=== PATIENT | female | born 1960 | race Caucasian/White ===

== ENCOUNTER 2019-11-03 17:06 | Emergency (ER) | payer MEDICAID, SELFPAY ==
[2019-11-03 17:08] VITALS: BP 116/73; PULSE 88; RESP 15; TEMP 36.4; O2SAT 100; BMI 19.8
--- NOTE | 2019-11-03 17:20 | EKG12_ITS ---
Test Reason : CP Blood Pressure : / mmHG Vent. Rate : 076 BPM Atrial Rate : 076 BPM P-R Int : 126 ms QRS Dur : 072 ms QT Int : 400 ms P-R-T Axes : 052 045 062 degrees QTc Int : 450 ms Normal sinus rhythm Normal ECG Confirmed by CADY HILARIO, DOROTHEA ([id number]), acquisitions editor HELLEN VAZQUEZ ([id number]) on 11/06/2019 12:55:14 PM Referred By: NATALYA/CLARENCE Confirmed By:SHAHNAZ LAZAR MD
--- NOTE | 2019-11-03 17:22 | RAD_ITS ---
STUDY: X-RAY CHEST REASON FOR EXAM: Female, 59 years old. CHEST PAINS AND SOB TECHNIQUE: Single frontal view of the chest. COMPARISON: None. FINDINGS: Cardiac silhouette unremarkable. Pulmonary vascularity unremarkable. Aorta unremarkable. No focal airspace opacities. No pleural effusions. Small nodular densities at the bilateral bases are presumed to represent nipple shadows. Upper abdomen unremarkable. Osseous structures intact. No pneumothorax. RAD/Chest 1 View (Portable) IMPRESSION: No acute cardiopulmonary findings. Small nodular densities at the bilateral bases are presumed to represent nipple shadows. Consider repeat chest radiograph with nipple markers. Electronically Signed: Sukumar Rosas, at 18:42 EDT Tel , Service support ,
[2019-11-03 17:31] LABS: Absolute Lymphocyte Count 2.36 X10^3/uL (0.83-4.51); Absolute Neutrophil Count 3.1 X10^3/uL (2.0-7.7); Basophil# 0.03 X10^3/uL; Basophil% 0.5 % (0-1); Eosinophil# 0.18 X10^3/uL; Eosinophils% 2.9 % (0-5); Hematocrit 40.9 % (37-47); Hemoglobin 13.8 g/dL (12.0-15.0); Lymphocyte # 2.36 X10^3/ul (4.0); Lymphocyte % 37.9 % (19-41); Mean Corp Hgb Conc 33.7 g/dL (32-36); Mean Corpuscular Hgb 30.9 pg (27.0-32.0); Mean Corpuscular Volume 91.5 fL (81-99); Mean Platelet Vol. 8.9 fl (6.2-12.0); Monocyte# 0.57 X10^3/uL; Monocyte% 9.1 % (0-10); NRBC Flagged by Analyzer 0 % (0-5); Neutrophil # 3.07 X10^3/uL (2.7-7.7); Neutrophil % 49.3 % (47-70); Platelet Count 211 K/mm3 (150-450); RBC Distribution Width CV 12.3 % (11.6-14.6); RBC Distribution Width SD 41.2 fl (35.1-43.9); Red Blood Count 4.47 M/mm3 (4.2-5.4); White Blood Count 6.2 K/mm3 (4.4-11.0)
--- NOTE | 2019-11-03 17:41 | NURSING ---
NO OLD EKGS
[2019-11-03 17:44] VITALS: O2SAT 99
--- NOTE | 2019-11-03 17:46 | ED.VIS.CHEST ---
History of Present Illness Chief Complaint: Chest Pain Informant: Patient Onset: Today Timing: Continuous Quality: Pressure, Tightness Location: Left Chest Worsened By: Nothing Relieved By: Nothing Associated Symptoms: Nausea, Dyspnea. Negative for: Vomiting, Diaphoresis, Cough, Fever, Lightheadedness, Acid Reflux, Palpitations Narrative: Patient is a 59-year-old female with history of fibromyalgia presenting with chest pain. Patient states she was at work wiping a table up when she suddenly started to feel short of breath. She then started to get discomfort and then a tightness in her chest. She states this was around 2 to 3 hours prior to arrival. The pain is in her left anterior chest. Does not radiate. She states it still there and bothersome but not as severe. She never had discomfort like this before. She does have intermittent paresthesias of her arms which is normal. She does have it on her left arm right now but does not think it is from her chest pain. She denies any swelling of her legs. She is not on any estrogen supplements. She denies a history of DVT or PE. She denies any personal cardiac history. Her father did have his first heart attack at 42 but she notes he was a tobacco smoker. She states that she has been told her cholesterol is slightly high but she is not put on any medications for it. Patient is never had a stress test or cardiac catheterization. She denies any other complaints at this time. Prior Similar Symptoms: No Recent Illness/Hospitalization: No CVD Risk Factors: Hypercholesterolemia, Family History 1' </=55. Negative for: Hypertension, Diabetes, Smoking Past Medical History - Allergies and Home Meds Allergies/Adverse Reactions: Allergies No Known Allergies Allergy (Verified 11/03/19 17:07) Primary Care Physician: Clark Monterroso MD [Primary Care Provider] - Past Medical History: - - Fibromyalgia Surgical History: noncontributory Smoking Status: Never smoker Review of Systems General: Denies: Chills, Fever, Sweats Eyes: Denies: Visual changes - bilaterally, Diplopia ENT: Denies: Rhinorrhea, Sore throat Cardiovascular: Reports: Chest pain. Denies: Palpitations Respiratory: Reports: Dyspnea. Denies: Cough, Dyspnea on exertion Gastrointestinal: Reports: Nausea. Denies: Abdominal pain, Vomiting, Diarrhea, Melena, Hematochezia Genitourinary: Denies: Dysuria, Hematuria, Frequency Musculoskeletal: Denies: Back pain, Extremity Pain Skin: Denies: Rash, Wounds Neurological: Denies: Headache, Weakness, Numbness Physical Exam Vital Signs/Narrative: Vital Signs Temp Pulse Resp BP Pulse Ox 11/03/19 17:44 99 11/03/19 17:08 97.6 F L 88 15 116/73 100 Inital Vital Signs reviewed: Yes General: Well nourished, Well developed, No Acute Distress Head: Normocephalic, Atraumatic Eyes: Perrl, EOMI ENT: Moist mucous membranes, No rhinorrhea Neck: Supple, Nontender Cardiovascular: Regular rate, Regular rhythm, No murmurs Respiratory: No distress, CTA bilaterally, Chest nontender. Negative for: Wheezing, Chest tenderness Abdomen: Soft, Nontender, Nondistended, Normal bowel sounds Back: Nontender, Normal Inspection Extremities: Nontender, No edema Skin: Normal color, No rash Neurological: Alert, Oriented x3, Cranial nerves II-XII grossly intact, Normal Strength, Normal Sensation Psychological: Normal affect, Normal Mood Diagnostic/Tx/Re-eval Chest X-Ray - ED: 2 View, Read by ED Physician, Read by Radiologist, No Acute Disease Clinical Impression(s) from Imaging Studies Chest X-Ray 11/03/19 17:22 IMPRESSION: No acute cardiopulmonary findings. Small nodular densities at the bilateral bases are presumed to represent nipple shadows. Consider repeat chest radiograph with nipple markers. Electronically Signed: Sukumar Rosas, at 18:42 EDT Tel , Service support , Laboratory Data 11/03/19 11/03/19 11/03/19 15:20 17:20 17:20 WBC 6.2 RBC 4.47 Hgb 13.8 Hct 40.9 MCV 91.5 MCH 30.9 MCHC 33.7 RDW Std Deviation 41.2 RDW Coeff of Sandy 12.3 Plt Count 211 MPV 8.9 Immature Gran % (Auto) 0.300 Neut % (Auto) 49.3 Lymph % (Auto) 37.9 [place] % (Auto) 9.1 Eos % (Auto) 2.9 Baso % (Auto) 0.5 Absolute Neuts (auto) 3.1 Absolute Lymphs (auto) 2.36 Nucleated RBC % 0 D-Dimer Quant (PE/DVT) 0.38 Sodium 140 Potassium 3.8 Chloride 104 Carbon Dioxide 29.0 Anion Gap 7 BUN 18 Creatinine 0.84 Estim Creat Clear Calc 56.70 Est GFR (MDRD) Af Amer 89 Est GFR (MDRD) Non-Af 74 BUN/Creatinine Ratio 21.3 H Glucose 87 Calcium 9.7 Troponin I < 0.015 - Rhythm Strip Rhythm Strip: Sinus Rhythm Rate: 76 Ectopy: None - EKG Initial EKG Interpretation: Sinus Rhythm, - - Sinus rhythm at a rate of 76 Normal axis Normal intervals Normal ST segments Treatment: Aspirin JUNIE Risk: No Positive JUNIE Elements Score: 0 - Medical Decision Making Patient is evaluated for shortness of breath and chest pain. This started a couple hours prior to arrival. Patient has normal vital signs. She appears nontoxic in no acute distress. Her physical exam is quite benign. Patient is low risk for PE except for age. A d-dimer is ordered because of her shortness of breath. It is 0.38. I do not suspect a PE and I do not think a CTA is indicated. Patient is also low risk per heart score. Patient is counseled that given her current negative troponin, EKG and risk factors that her current 30-day mortality is 2%. Patient is offered a delta troponin but declines. She is counseled that she does need further outpatient follow-up with her PCP. Patient is given aspirin empirically in the emergency room. While her work-up is normal and exact cause of her chest pain and shortness of breath is not clear. She is counseled that she does need further outpatient follow-up. ED Disposition - Plan for ED Patient: Disposition: Home or Assisted Living Diagnosis: Chest pain, Dyspnea Instructions: CHEST PAIN, Uncertain Cause Referrals: Clark Monterroso MD [Primary Care Provider] - Additional Instructions: The exact cause of your chest pain is not clear. However I think you are safe to follow-up with your primary care doctor for further evaluation. Please return the emergency room with any worsening symptoms.
[2019-11-03 17:50] LABS: Anion Gap 7 (5-15); BUN 18 mg/dL (7-18); BUN/Creat Ratio 21.3 RATIO (10-20); Calcium,Total 9.7 mg/dL (8.5-10.1); Chloride 104 mmol/L (98-107); Creatinine, Serum 0.84 mg/dL (0.55-1.02); EST Glomerular Filtration Rate 74 mL/min (>60); Est Glom Filt Rate - Afr Amer 89 mL/min (>60); Glucose 87 mg/dL (74-106); Potassium 3.8 mmol/L (3.5-5.1); Sodium Level 140 mmol/L (136-145)
[2019-11-03] MEDS: Aspirin 325 MG Tablet PO (17:56)
[2019-11-03 18:10] LABS: D-Dimer Quantitative (DVT/PE) 0.38 FEU/ug/m (0.27-0.49)
[2019-11-03 18:34] VITALS: BP 154/72; PULSE 67; RESP 14; O2SAT 93
[2019-11-03 19:43] VITALS: BP 113/68; PULSE 72; RESP 16; O2SAT 97
== END 2019-11-03 19:44 | disposition home or self-care (01) ==
PROVIDERS: Emergency Provider Emergency Medicine; PCP Family Medicine
DX: R07.9 Chest pain, unspecified (principal); R06.00 Dyspnea, unspecified; R06.02 Shortness of breath; E78.00 Pure hypercholesterolemia, unspecified; M79.7 Fibromyalgia; Z82.49 Family history of ischemic heart disease and other diseases of the circulatory system; R20.2 Paresthesia of skin
CPT/HCPCS: 71045; 80048; 84484; 85025; 85379; 93005; 99285; J7050; A4216

== ENCOUNTER → 2021-01-09 10:54 | Outpatient (CLI) | payer MEDICAID, SELFPAY ==
[2021-01-09 12:51] LABS: Absolute Lymphocyte Count 1.86 X10^3/uL (0.83-4.51); Absolute Neutrophil Count 2.2 X10^3/uL (2.0-7.7); Basophil# 0.06 X10^3/uL; Basophil% 1.2 % (0-1); Eosinophil# 0.19 X10^3/uL; Eosinophils% 3.9 % (0-5); Hematocrit 38.4 % (37-47); Hemoglobin 12.5 g/dL (12.0-15.0); Lymphocyte # 1.86 X10^3/ul (0.83-4.51); Lymphocyte % 38.4 % (19-41); Mean Corp Hgb Conc 32.6 g/dL (32-36); Mean Corpuscular Hgb 30.3 pg (27.0-32.0); Mean Platelet Vol. 9.3 fl (6.2-12.0); Monocyte# 0.47 X10^3/uL; Monocyte% 9.7 % (0-10); NRBC Flagged by Analyzer 0 % (0-5); Neutrophil # 2.24 X10^3/uL (2.7-7.7); Neutrophil % 46.4 % (47-70); Platelet Count 219 K/mm3 (150-450); RBC Distribution Width CV 12.7 % (11.6-14.6); Red Blood Count 4.13 M/mm3 (4.2-5.4); White Blood Count 4.8 K/mm3 (4.4-11.0)
[2021-01-09 13:29] LABS: Vitamin B12 931 pg/mL (211-911); Vitamin D,25 Hydroxy 50.4 ng/mL
[2021-01-09 13:43] LABS: Progesterone Level < 0.21 ng/mL (See Comment)
[2021-01-09 14:01] LABS: ALB/GLOB Ratio 1.1 RATIO (0.9-2.4); AST(SGOT) 25 U/L (15-37); Alanine Aminotransfer ALT/SGPT 45 U/L (13-56); Albumin, Serum 3.8 g/dL (3.2-5.0); Alkaline Phosphatase 77 U/L (45-117); Anion Gap 2 (5-15); BUN 21 mg/dL (7-18); BUN/Creat Ratio 25.3 RATIO (10-20); Calcium,Total 9.1 mg/dL (8.5-10.1); Chloride 106 mmol/L (98-107); Creatinine, Serum 0.83 mg/dL (0.55-1.02); EST Glomerular Filtration Rate 75 mL/min (>60); Est Glom Filt Rate - Afr Amer 90 mL/min (>60); Estradiol < 11.0 pg/mL; Free T3 2.3 pg/mL (2.18-3.98); Globulin 3.6 g/dL (2.2-4.2); Glucose 78 mg/dL (74-106); Potassium 3.6 mmol/L (3.5-5.1); Protein, Total 7.4 g/dL (6.4-8.2); Sodium Level 141 mmol/L (136-145); T4 Free Direct 0.88 ng/dL (0.76-1.46)
[2021-01-10 04:07] LABS: DHEA Sulfate 41.2 ug/dL (29.4-220.5)
[2021-01-10 07:42] LABS: Thyroid Peroxidase AB 126 IU/mL (0-34)
[2021-01-10 18:55] LABS: ANTINUCLEAR ANTIBODIES DIRECT Negative (Negative)
== END ==
PROVIDERS: PCP Family Medicine; Referring Provider Preventive Medicine Public Health & General Preventive Medicine; Visit Provider Preventive Medicine Public Health & General Preventive Medicine
DX: E03.9 Hypothyroidism, unspecified (principal); E34.9 Endocrine disorder, unspecified; N95.1 Menopausal and female climacteric states; E55.9 Vitamin D deficiency, unspecified; E53.8 Deficiency of other specified B group vitamins; R65.10 Systemic inflammatory response syndrome (SIRS) of non-infectious origin without acute organ dysfunction; E27.49 Other adrenocortical insufficiency
CPT/HCPCS: 36415; 80053; 82306; 82533; 82607; 82627; 82670; 82746; 84144; 84403; 84439; 84443; 84481; 85025; 86038; 86376; 82626

== ENCOUNTER 2021-09-12 12:51 | Outpatient (CLI) | payer MEDICAID, SELFPAY ==
[2021-09-12 13:37] LABS: Absolute Lymphocyte Count 1.54 X10^3/uL (0.83-4.51); Absolute Neutrophil Count 2.4 X10^3/uL (2.0-7.7); Basophil# 0.05 X10^3/uL; Basophil% 1.1 % (0-1); Eosinophil# 0.13 X10^3/uL; Eosinophils% 2.8 % (0-5); Hemoglobin 13.4 g/dL (12.0-15.0); Lymphocyte # 1.54 X10^3/ul (0.83-4.51); Mean Corp Hgb Conc 33.5 g/dL (32-36); Mean Corpuscular Hgb 30.8 pg (27.0-32.0); Mean Platelet Vol. 9.2 fl (6.2-12.0); Monocyte# 0.54 X10^3/uL; Monocyte% 11.6 % (0-10); NRBC Flagged by Analyzer 0 % (0-5); Neutrophil % 51.3 % (47-70); Platelet Count 217 K/mm3 (150-450); RBC Distribution Width CV 12.2 % (11.6-14.6); RBC Distribution Width SD 41.4 fl (35.1-43.9); Red Blood Count 4.35 M/mm3 (4.2-5.4); White Blood Count 4.7 K/mm3 (4.4-11.0)
[2021-09-12 14:15] LABS: ALB/GLOB Ratio 1.1 RATIO (0.9-2.4); AST(SGOT) 19 U/L (15-37); Alanine Aminotransfer ALT/SGPT 29 U/L (13-56); Alkaline Phosphatase 89 U/L (45-117); Anion Gap 5 (5-15); BUN 19 mg/dL (7-18); BUN/Creat Ratio 22.5 RATIO (10-20); Calcium,Total 9.5 mg/dL (8.5-10.1); Chloride 105 mmol/L (98-107); Creatinine, Serum 0.84 mg/dL (0.55-1.02); EST Glomerular Filtration Rate 73 mL/min (>60); Est Glom Filt Rate - Afr Amer 89 mL/min (>60); Estradiol 11.1 pg/mL; Free T3 3.9 pg/mL (2.18-3.98); Globulin 3.8 g/dL (2.2-4.2); Glucose 82 mg/dL (74-106); Potassium 3.8 mmol/L (3.5-5.1); Protein, Total 7.8 g/dL (6.4-8.2); Sodium Level 141 mmol/L (136-145); T4 Free Direct 0.87 ng/dL (0.76-1.46)
[2021-09-12 15:16] LABS: Vitamin D,25 Hydroxy 66.2 ng/mL
[2021-09-12 15:18] LABS: Progesterone Level 0.58 ng/mL (See Comment)
[2021-09-13 06:08] LABS: DHEA Sulfate 54.6 ug/dL (29.4-220.5)
[2021-09-13 08:27] LABS: Thyroid Peroxidase AB 106 IU/mL (0-34)
== END 2021-09-12 23:59 | disposition short-term general hospital (02) ==
LOC: LAB 12:53
PROVIDERS: PCP Family Medicine; Referring Provider Preventive Medicine Public Health & General Preventive Medicine; Visit Provider Preventive Medicine Public Health & General Preventive Medicine
DX: E03.9 Hypothyroidism, unspecified (principal); E34.9 Endocrine disorder, unspecified; N95.1 Menopausal and female climacteric states; E55.9 Vitamin D deficiency, unspecified
CPT/HCPCS: 36415; 80053; 82306; 82627; 82670; 84144; 84403; 84439; 84443; 84481; 85025; 86376; 82626

== ENCOUNTER 2023-06-02 15:14 | Emergency (ER) | payer MEDICAID, SELFPAY ==
[2023-06-02 15:15] VITALS: BP 128/62; PULSE 90; RESP 16; TEMP 35.8; O2SAT 98; BMI 21.2
--- NOTE | 2023-06-02 15:26 | EX.ED.GENINJ ---
HPI History of Present Illness Chief Complaint: Laceration Detail of Chief Complaint: Mouth laceration Informant: patient Onset/Context/Timing Onset: Today Narrative Narrative: Patient presents secondary to laceration to her mouth. Patient was hit in the mouth with a softball. She has a laceration over the midportion of the left lower lip as well as another laceration on the inner surface of the lower lip. She states her teeth are sore but they are not loose. She is unsure of her last tetanus update. She denies neck pain. No loss of consciousness. PFSH PFSH Home Medications trazodone 50 mg tablet 50 mg PO QHS 11/03/19 [History Last Taken 11/02/19] venlafaxine 75 mg tablet 75 mg PO DAILY 11/03/19 [History Last Taken 11/03/19] amoxicillin 875 mg-potassium clavulanate 125 mg tablet 1 tab PO BID #10 tabs 06/02/23 [Rx Last Taken Unknown] naproxen 500 mg tablet (Naprosyn) 500 mg PO BID PRN pain #20 tabs 06/02/23 [Rx Last Taken Unknown] Allergy/AdvReac Type Severity Reaction Status Date / Time sulfamethoxazole Allergy Mild Nausea Verified 06/02/23 15:15 [From Bactrim] trimethoprim [From Bactrim] Allergy Mild Nausea Verified 06/02/23 15:15 Social History Smoking Status: Never smoker ROS ROS ED Constitutional Constitutional ED: Denies chills or fever(s) Eyes Eyes: Denies change in vision ENT ENT ED: Reports other Details: Oral laceration ; Denies rhinorrhea or sore throat Cardiovascular Cardiovascular: Denies chest pain or palpitations Respiratory/Chest Respiratory/Chest: Denies cough or dyspnea Gastrointestinal Gastrointestinal: Denies abdominal pain, nausea or vomiting Musculoskeletal Musculoskeletal: Denies back pain or neck pain Integumentary Reports other Details: Oral laceration ; Denies Abrasions or rash Neurologic Neurologic: Denies headache(s) or weakness Psychiatric Psychiatric: Denies anxiety or depression Allergic/Immunologic Allergic/Immunologic ED: Denies lip swelling or urticaria EXAM Physical Exam Const Vital Signs: 06/02/23 15:15 Temperature 96.4 F L Temperature Source Temporal Pulse Rate 90 Respiratory Rate 16 Blood Pressure 128/62 H Blood Pressure Mean 84 Pulse Ox 98 Oxygen Delivery Method Room Air Positive well nourished and well developed General Appearance ED: well developed HEENT HEENT Narrative: Small 3 mm laceration from bite wound over the mid surface of the left lower lip. It does not cross the vermilion border. She has a 1 cm Y-shaped laceration on the inner surface of the left lower lip. It is not a through and through injury. Teeth are stable. Eyes PERRL and EOMs intact bilaterally Neck Neck Narrative: No C-spine tenderness. Chest Wall inspection of chest normal and palpation of chest normal Resp normal respiratory effort and clear to auscultation bilaterally Cardio regular rhythm Rate: regular rate GI non-tender Palpation: soft Extremity normal to inspection Neuro oriented x3 and moves all extremities MDM MDM MDM Narrative Medical decision making narrative: Patient has 2 separate lacerations and neither crosses the vermilion border. I do feel they will heal well with secondary intention and explained to the patient that we would like to avoid stitches in the mouth because of the bacteria. She understands this and is comfortable with the plan. I will treat her with a 5-day course of Augmentin to prevent infection. We discussed rinsing her mouth with water in time she eats or drinks anything to keep the wound clean. She will receive a tetanus update while here. She is also given a prescription for Naprosyn. Discharge Plan Triage Chief Complaint: Laceration ED Provider: Marissa Almeida Dx/Rx/DC Orders Clinical Impression: Laceration of lip Instructions: ED Laceration, Lip or Mouth Prescriptions: New naproxen [Naprosyn] 500 mg tablet 500 mg PO BID PRN (Reason: pain) Qty: 20 0RF amoxicillin-pot clavulanate 875-125 mg tablet 1 tab PO BID Qty: 10 0RF No Action venlafaxine 75 MG tablet 75 mg PO DAILY trazodone 50 MG tablet 50 mg PO QHS Primary Care Provider: Clark Monterroso Referrals: Clark Monterroso MD [Primary Care Provider] - As Needed Disposition Disposition: Home, Self Care
[2023-06-02] MEDS: Diphth,Pertuss(Acell),Tet Vac 0.5 ML Vial IM (15:35)
[2023-06-02] MEDS: Amox/Clavulanate 875 MG Tablet PO (15:35)
[2023-06-02] MEDS: Naproxen 500 MG Tablet PO (15:35)
== END 2023-06-02 15:40 | disposition home or self-care (01) ==
LOC: ED 15:34
PROVIDERS: Emergency Provider Emergency Medicine; PCP Family Medicine; Visit Provider Emergency Medicine
DX: S01.511A Laceration without foreign body of lip, initial encounter (principal); W21.07XA Struck by softball, initial encounter; Z23 Encounter for immunization
CPT/HCPCS: 90471; 90715; 99283

== ENCOUNTER 2023-07-20 15:24 | Emergency (ER) | payer MEDICAID, SELFPAY ==
[2023-07-20 15:25] VITALS: BP 122/85; PULSE 68; RESP 18; TEMP 36.3; O2SAT 98
--- NOTE | 2023-07-20 15:57 | EDS_ITS ---
HPI History of Present Illness Chief Complaint: General Illness Narrative Narrative: 62-year-old female presenting with nausea, generalized fatigue. Patient states that symptoms initially started on the 16th with sore throat, fever, chills. She states the symptoms resolved. She was not tested for anything. She denies a cough. She states she does sweat when she lays down at night. Denies chest pain or shortness of breath. Patient states he is very anxious. She states that in the past when she was sick her thyroid numbers went up and she typically is on Synthroid but had to be on another medication to bring her thyroid numbers down. Patient has not had her medications changed in 3 years. She is concerned that her thyroid numbers are going up. Patient does admit to nausea but she is not vomiting. She ate some pears before coming to the hospital. She states has been drinking plenty of water. She describes a little bit of dizziness when walking. But does not sound vertiginous in nature. [facility] Medical History Anxiety Dizziness Home Medications trazodone 50 mg tablet 50 mg PO QHS 11/03/19 [History Last Taken 11/02/19] venlafaxine 75 mg tablet 75 mg PO DAILY 11/03/19 [History Last Taken 11/03/19] naproxen 500 mg tablet (Naprosyn) 500 mg PO BID PRN pain #20 tabs 06/02/23 [Rx Last Taken Unknown] hydroxyzine HCl 25 mg tablet 25 mg PO TID PRN anxiety #20 tabs 07/20/23 [Rx Last Taken Unknown] hydroxyzine pamoate 25 mg capsule 25 mg PO Q8H PRN anxiety 07/20/23 [History Last Taken Unknown] meclizine 25 mg tablet 25 mg PO TID PRN dizziness/nausea #30 tabs 07/20/23 [Rx Last Taken Unknown] Allergy/AdvReac Type Severity Reaction Status Date / Time sulfamethoxazole Allergy Mild Nausea Verified 07/20/23 15:25 [From Bactrim] trimethoprim [From Bactrim] Allergy Mild Nausea Verified 07/20/23 15:25 Social History Smoking Status: Never smoker ROS ROS ED ROS Narrative Dizziness Constitutional Constitutional ED: Denies chills, fever(s) or sweats Eyes Eyes: Denies blurry vision or change in vision ENT ENT ED: Denies ear pain or sore throat Cardiovascular Cardiovascular: Denies chest pain, palpitations or racing heartbeat Respiratory/Chest Respiratory/Chest: Denies cough, dyspnea or sputum Gastrointestinal Gastrointestinal: Denies abdominal pain, constipation, diarrhea, nausea or vomiting Genitourinary Genitourinary ED: Denies dysuria, hematuria or urinary frequency Musculoskeletal Musculoskeletal: Denies arthralgias, myalgias or neck pain Integumentary Denies abscess, Abrasions or rash Neurologic Neurologic: Denies headache(s), paresthesias or weakness Psychiatric Psychiatric: Reports anxiety; Denies depression, suicidal ideation or suicidal thoughts Endocrine Endocrinology: Denies polydipsia or polyuria EXAM Physical Exam Const Vital Signs: 07/20/23 15:25 07/20/23 15:43 Temperature 97.3 F L Temperature Source Temporal Pulse Rate 68 Respiratory Rate 18 Respiratory Effort Normal Non-Labored Respiratory Pattern Normal Blood Pressure 122/85 H Blood Pressure Mean 97 Pulse Ox 98 Oxygen Delivery Method Room Air Positive well nourished General Appearance ED: NAD; Negative for pallor HEENT Reports moist mucous membranes Eyes PERRL and EOMs intact bilaterally General Eye ED: Negative for pale conjunctiva Neck no lymphadenopathy Chest Wall inspection of chest normal Resp normal respiratory effort Effort and Inspection: Negative for retractions Cardio regular rate and regular rhythm Neuro oriented x3 and CN's II-XII intact bilaterally Sensorium / Orientation: alert Motor Exam: strength 5/5 throughout Psych Mood & Affect: anxious Skin no rashes or lesions noted General Skin Exam: Negative for jaundice or pallor MDM MDM MDM Narrative Medical decision making narrative: Patient with symptoms of dizziness, nausea, mild abdominal pain. Abdominal exam is benign. Differential includes gastritis, GERD, dehydration, electrolyte normalities, UTI, pyelonephritis, pancreatitis, hyperthyroid, hypothyroid. We will obtain a CBC to assess white blood cell count, hemoglobin, platelets. CMP to assess liver function and electrolytes. Lipase to assess for pancreatitis. Urinalysis to assess for UTI. Patient medicated with IV fluids. She declines analgesia, nausea medicine, anxiolytics. She states that she does not do well with medications and usually makes her feel worse. She does request that I check her thyroid function. He states, T3, T4 will be obtained. BC is normal without leukocytosis. Hemoglobin 13.0. Platelets are 253. Renal function and electrolytes within normal limits. TSH and T4 are normal. T3 low at 2.0. Un determined significance. Urinalysis was negative. Again asked the patient if she wanted any treatment for her nausea or anxiety and she declined. We discussed discharge paperwork and prior to her receiving this she had eloped from the emergency department. I did write her prescription for meclizine to see if this would help with her dizziness and nausea and hydroxyzine to help with her anxiety if needed. The nurse was going to call her to let her know she has prescriptions if she needs them. Return precautions will be given. Impression: 1. Anxiety 2. Nausea Lab Data Attestation: I reviewed the patient's lab results. Labs: Laboratory Results - last 24 hr 07/20/23 07/20/23 16:15 17:19 WBC 5.3 RBC 4.31 Hgb 13.0 Hct 38.9 MCV 90.3 MCH 30.2 MCHC 33.4 RDW Std Deviation 40.0 RDW Coeff of [place] 12.0 Plt Count 253 MPV 8.9 Immature Gran % (Auto) 0.700 Neut % (Auto) 66.1 Lymph % (Auto) 22.1 [place] % (Auto) 9.2 Eos % (Auto) 1.3 Baso % (Auto) 0.6 Absolute Neuts (auto) 3.5 Absolute Lymphs (auto) 1.18 Nucleated RBC % 0 Sodium 138 Potassium 3.7 Chloride 104 Carbon Dioxide 26.0 Anion Gap 8 BUN 24 H Creatinine 0.84 Estim Creat Clear Calc 53.07 Est GFR (MDRD) Af Amer 88 Est GFR (MDRD) Non-Af 73 BUN/Creatinine Ratio 28.4 H Glucose 100 Calcium 8.9 Total Bilirubin 0.60 AST 18 ALT 17 Alkaline Phosphatase 62 Total Protein 7.4 Albumin 3.8 Globulin 3.6 Albumin/Globulin Ratio 1.1 Lipase 42 TSH 2.92 Free T4 1.26 Free T3 pg/dL 2.0 L Urine Color Yellow Urine Clarity Clear Urine pH 6.5 Ur Specific [place] 1.010 Urine Protein Negative Urine Glucose (UA) Normal Urine Ketones 50 H Urine Occult Blood Negative Urine Nitrite Negative Urine Bilirubin Negative Urine Urobilinogen Normal Ur Leukocyte Esterase 100 H Urine RBC 0 SEEN Urine WBC 0 SEEN Ur Squamous Epith Cells 0 SEEN Urine Bacteria 0 SEEN Urine Mucus 0 SEEN Discharge Plan Triage Chief Complaint: General Illness ED Provider: Jone Gamez Dx/Rx/DC Orders Instructions: ED Dizziness, Uncertain Cause, ED Weakness (Uncertain Cause) Prescriptions: New meclizine 25 mg tablet 25 mg PO TID PRN (Reason: dizziness/nausea) Qty: 30 0RF hydroxyzine HCl 25 mg tablet 25 mg PO TID PRN (Reason: anxiety) Qty: 20 0RF No Action venlafaxine 75 MG tablet 75 mg PO DAILY trazodone 50 MG tablet 50 mg PO QHS naproxen [Naprosyn] 500 mg tablet 500 mg PO BID PRN (Reason: pain) Qty: 20 0RF hydroxyzine pamoate 25 mg capsule 25 mg PO Q8H PRN (Reason: anxiety) Patient Comments: Take 1 capsule by mouth three times a day as needed. Primary Care Provider: Clark Monterroso Referrals: Clark Monterroso MD [Primary Care Provider] - Disposition Disposition: Home, Self Care
[2023-07-20] MEDS: 0.9% Normal Saline (1000mL) 1,000 ML 1000 ML IV (16:12)
[2023-07-20 16:20] LABS: Absolute Lymphocyte Count 1.18 X10^3/uL (0.83-4.51); Absolute Neutrophil Count 3.5 X10^3/uL (2.0-7.7); Basophil# 0.03 X10^3/uL; Basophil% 0.6 % (0-1); Eosinophil# 0.07 X10^3/uL; Eosinophils% 1.3 % (0-5); Hematocrit 38.9 % (37-47); Lymphocyte # 1.18 X10^3/ul (0.83-4.51); Lymphocyte % 22.1 % (19-41); Mean Corp Hgb Conc 33.4 g/dL (32-36); Mean Corpuscular Hgb 30.2 pg (27.0-32.0); Mean Corpuscular Volume 90.3 fL (81-99); Mean Platelet Vol. 8.9 fl (6.2-12.0); Monocyte# 0.49 X10^3/uL; Monocyte% 9.2 % (0-10); NRBC Flagged by Analyzer 0 % (0-5); Neutrophil # 3.53 X10^3/uL (2.7-7.7); Neutrophil % 66.1 % (47-70); Platelet Count 253 K/mm3 (150-450); Red Blood Count 4.31 M/mm3 (4.2-5.4); White Blood Count 5.3 K/mm3 (4.4-11.0)
[2023-07-20 17:11] LABS: Albumin, Serum 3.8 g/dL (3.2-5.0); Anion Gap 8 (5-15); BUN 24 mg/dL (7-18); Calcium,Total 8.9 mg/dL (8.5-10.1); Chloride 104 mmol/L (98-107); Glucose 100 mg/dL (74-106); Lipase 42 U/L (13-75); Potassium 3.7 mmol/L (3.5-5.1); Sodium Level 138 mmol/L (136-145)
[2023-07-20 17:14] LABS: AST(SGOT) 18 U/L (15-37); Alanine Aminotransfer ALT/SGPT 17 U/L (13-56); BUN/Creat Ratio 28.4 RATIO (10-20); Creatinine, Serum 0.84 mg/dL (0.55-1.02); EST Glomerular Filtration Rate 73 mL/min (>60); Est Glom Filt Rate - Afr Amer 88 mL/min (>60); Estimated Creatinine Clearance 53.07 ml/min
[2023-07-20 17:18] LABS: ALB/GLOB Ratio 1.1 RATIO (0.9-2.4); Alkaline Phosphatase 62 U/L (45-117); Globulin 3.6 g/dL (2.2-4.2); Protein, Total 7.4 g/dL (6.4-8.2); T4 Free Direct 1.26 ng/dL (0.76-1.46)
[2023-07-20 17:22] LABS: Bacteria 0 SEEN /hpf (None Seen); Mucous, Urine 0 SEEN /hpf (<or=2+); Red Blood Cells-Urine 0 SEEN /hpf (0-5); Squamous Epithelial Cells - UA 0 SEEN /hpf (5-10); White Blood Cells 0 SEEN /hpf (0-5)
[2023-07-20 17:25] LABS: Color, Urine Yellow (Yellow); Glucose, Dipstick Normal (Normal); Ketone-Dipstick 50 mg/dl (Negative); Leukocyte Esterase-Dipstick 100 /ul (Negative); Nitrite-Dipstick Negative (Negative); Occult Blood-Urine Negative /ul (Negative); Protein-Dipstick Negative (Negative); Urine Bilirubin Dipstick Negative (Negative); Urine Clarity Clear (Clear); Urine Urobilinogen Normal (Normal); Urine pH 6.5 (5.0 - 8.0)
[2023-07-20 17:25] LABS: Thyroid Stim Hormone (TSH) 2.92 uIU/mL (0.358-3.74)
== END 2023-07-20 18:00 | disposition home or self-care (01) ==
PROVIDERS: Emergency Provider Student in an Organized Health Care Education/Training Program; PCP Family Medicine; Visit Provider Student in an Organized Health Care Education/Training Program
DX: F41.9 Anxiety disorder, unspecified (principal); R11.0 Nausea
CPT/HCPCS: 80053; 81001; 83690; 84439; 84443; 84481; 85025; 96360; 96361; 99283; J7030